=== PATIENT | female | born 1990 | race American Indian/Alaskan Native ===

== ENCOUNTER 2019-04-25 02:55 | Emergency (ER) | payer OTHER ==
[2019-04-25 03:38] VITALS: BP 167/95
--- NOTE | 2019-04-25 04:16 | Emergency Department Report ---
Chief Complaint: Medical Clearance Stated Complaint: RABIES VACCINE Time Seen by Provider: 04/25/19 04:06 - HPI History of Present Illness: This is a 29-year-old female who presents with complaining of exposure to that bat happened a week ago. Patient states that she when her son's room and saw a bat on the side of the ccrib. Patient states that she was not bit by bats. Patient states her mother came in the room and dispose of the bat with cup and let it out the front door. Patient states that her mother did not sustain any bites from that. Patient states she was not aware how long the bat was on the crib. She presents here with her mother to be evaluated. She states that she had taken her child to be evaluated and her son was vaccined. She states that she has not seen any bite gonzalez on her body did not feel any bite. She denies fevers/chills/nausea vomiting/myalgia or any other problems - ROS Review of Systems: As noted in HPI - Exam Vital Signs: Vital Signs 04/25/19 03:24 Temperature 98.1 F Pulse Rate 92 H Respiratory 18 Rate Blood Pressure 167/95 O2 Sat by Pulse 98 Oximetry Physical Exam: General: Alert and oriented 3. Skin: No lesions or bite gonzalez seen MSE screening note: Focused history and physical exam performed. Due to findings the following was ordered: ED Medical Decision Making - Medical Decision Making 29-year-old female presents to bat exposure. Patient did not sustain any bite from the back. I discussed with the patient that there is no need for vaccination since she was not Bitten. Discussed follow-up with primary care physician. Vital signs are normal patient is in no acute distress ED Disposition for MSE Clinical Impression: Exposure to bat without known bite Disposition: DC-01 TO HOME OR SELFCARE Is pt being admited?: No Does the pt Need Aspirin: No Condition: Stable Instructions: Animal Bite (ED) Additional Instructions: Make sure to follow up with the primary care physician as discussed. Take all your medications as you've been prescribed. If you have any worsening symptoms or develop new symptoms please return to ED immediately. Referrals: BASILIA ARBOLEDA MD [Primary Care Provider] - 3-5 Days Forms: Work/School Release Form(ED) Time of Disposition: 04:22
[2019-04-26] MEDS ORDERED: KEPPRA 1,000 MG/NS 0.75% 100ML 0 MG/0 ML BAG IV ONE (21:20)
== END 2019-04-25 04:30 | disposition home or self-care (01) ==
LOC: ED 02:55
DX: Z20.9 Contact with and (suspected) exposure to unspecified communicable disease (principal); Z91.040 Latex allergy status; Z91.018 Allergy to other foods
CPT/HCPCS: 99281; J1953